=== PATIENT | male | born 1945 | race Caucasian/White ===

== ENCOUNTER 2023-04-21 13:32 | Inpatient (IN) | payer MEDICARE, BC ==
[2023-04-21 14:04] LABS: Glucose,Whole Blood 130 mg/dL (70-110)
[2023-04-21] MEDS ORDERED: SODIUM CHLORIDE 0.9% 1,000 ML IV STA (14:37)
--- NOTE | 2023-04-21 14:42 | ED ---
General Adult HPI - General Chief complaint: Altered Mental Status Stated complaint: Recheck/Shaking Time Seen by Provider: 04/21/23 14:12 Source: patient, family, RN notes reviewed Mode of arrival: wheelchair - History of Present Illness Initial comments: Patient is a pleasant 78-year-old male presenting to the emergency Department with several concerns. Patient has had increased general weakness. Patient is only able to take 1 or 2 steps on his own without assistance. Patient has developed tremors. Patient has had some confusion. Decreased oral intake. No history of similar symptoms previously. Symptoms have just progressively the past few days. - Related Data Allergies Allergy/AdvReac Type Severity Reaction Status Date / Time acetaminophen [From Vicodin] Allergy Rash/Hives Verified 04/21/23 14:10 cefazolin [From Kefzol] Allergy Rash/Hives Verified 04/21/23 14:10 codeine Allergy Rash/Hives Verified 04/21/23 14:10 hydrocodone [From Vicodin] Allergy Rash/Hives Verified 04/21/23 14:10 hydromorphone [From Dilaudid] Allergy Vomiting Verified 04/21/23 14:10 ibuprofen [From Motrin] Allergy Rash/Hives Verified 04/21/23 14:10 morphine Allergy Rash/Hives Verified 04/21/23 14:10 tramadol Allergy Rash/Hives Verified 04/21/23 14:10 alprazolam AdvReac Unknown Verified 04/21/23 14:10 tape Allergy Rash/Hives Uncoded 04/21/23 14:10 Review of Systems ROS Statement: Those systems with pertinent positive or pertinent negative responses have been documented in the HPI. ROS Other: All systems not noted in ROS Statement are negative. Constitutional: Denies: fever Eyes: Denies: eye pain ENT: Denies: ear pain Respiratory: Denies: cough, dyspnea Cardiovascular: Denies: chest pain Endocrine: Reports: as per HPI, fatigue Gastrointestinal: Denies: abdominal pain, vomiting Genitourinary: Denies: dysuria Musculoskeletal: Denies: back pain Skin: Denies: rash Neurological: Reports: as per HPI, weakness Past Medical History Past Medical History: Chest Pain / Angina, Hyperlipidemia, Hypertension History of Any Multi-Drug Resistant Organisms: None Reported Additional Past Surgical History / Comment(s): shoulder, hip. AAA? Past Psychological History: No Psychological Hx Reported Smoking Status: Never smoker Past Alcohol Use History: None Reported Past Drug Use History: None Reported General Exam Limitations: no limitations General appearance: alert, in no apparent distress, other (Patient is slow to follow commands) Head exam: Present: atraumatic Eye exam: Present: normal appearance, PERRL, EOMI ENT exam: Present: normal oropharynx Neck exam: Present: normal inspection. Absent: tenderness, meningismus Respiratory exam: Present: normal lung sounds bilaterally Cardiovascular Exam: Present: regular rate, normal rhythm GI/Abdominal exam: Present: soft. Absent: tenderness Extremities exam: Present: normal inspection, full ROM. Absent: tenderness Neurological exam: Present: alert, CN II-XII intact Expanded Neurological exam: Present: protecting the airway Patient oriented to: Present: person, place. Absent: time Cranial nerves: EOM's Intact: Normal Motor strength exam: RUE: 4, LUE: 4, RLE: 3, LLE: 3 Eye Response: (3) open to voice Motor Response: (6) obeys commands Verbal Response: (4) confused conversation Psychiatric exam: Present: normal affect, normal mood Skin exam: Present: normal color Course Vital Signs 04/21/23 04/21/23 04/21/23 13:57 15:00 16:00 Temperature 97.4 F L Pulse Rate 84 86 80 Respiratory 18 18 18 Rate Blood Pressure 104/64 118/74 110/68 O2 Sat by Pulse 97 99 99 Oximetry 04/21/23 17:00 Temperature Pulse Rate 81 Respiratory 18 Rate Blood Pressure 113/64 O2 Sat by Pulse 99 Oximetry EKG Findings - EKG Results: EKG: interpreted by ERMD (Left axis. Bundle-branch block. Right.), sinus rhythm, normal ST/T Medical Decision Making - Medical Decision Making Was pt. sent in by a medical professional or institution (, PA, GRAPHICS PRODUCTION SPECIALIST, urgent care, hospital, or correction...) When possible be specific @ -No Did you speak to anyone other than the patient for history (EMS, parent, family, police, friend...)? What history was obtained from this source @ -Family is present and helps provide history including history of onset Did you review nursing and triage notes (agree or disagree)? Why? @ -I reviewed and agree with nursing and triage notes Were old charts reviewed (outside hosp., previous admission, EMS record, old EKG, old radiological studies, urgent care reports/EKG's, correction records)? Report findings @ -No old charts were reviewed Differential Diagnosis (chest pain, altered mental status, abdominal pain women, abdominal pain men, vaginal bleeding, weakness, fever, dyspnea, syncope, headache, dizziness, GI bleed, back pain, seizure, CVA, palpatations, mental health, musculoskeletal)? @ -Differential Weakness: Hypoglycemia, shock, sepsis, hyponatremia, anemia, infection, IN, ETOH, adverse medicine reaction, overdose, stroke, this is not meant to be an all-inclusive l ist. EKG interpreted by me (3pts min.). @ -As above X-rays interpreted by me (1pt min.). @ -Chest x-ray shows no acute process CT interpreted by me (1pt min.). @ -Report reviewed U/S interpreted by me (1pt. min.). @ -None done What testing was considered but not performed or refused? (CT, X-rays, U/S, labs)? Why? @ -None What meds were considered but not given or refused? Why? @ -None Did you discuss the management of the patient with other professionals (professionals i.e. , PA, GRAPHICS PRODUCTION SPECIALIST, lab, RT, psych nurse, child welfare social worker, education faculty member, teacher, ecological technical officer, residential case manager)? Give summary @ -Case was discussed with Dr. Nova, who will admit covering hospital call. Was smoking cessation discussed for >3mins.? @ -No Was critical care preformed (if so, how long)? @ -No Were there social determinants of health that impacted care today? How? (Homelessness, low income, unemployed, alcoholism, drug addiction, transportation, low edu. Level, literacy, decrease access to med. care, fpc, rehab)? @ -No Was there de-escalation of care discussed even if they declined (Discuss DNR or withdrawal of care, Hospice)? DNR status @ -No What co-morbidities impacted this encounter? (DM, HTN, Smoking, COPD, CAD, Cancer, CVA, ARF, Chemo, Hep., AIDS, mental health diagnosis, sleep apnea, morbid obesity)? @ -None Was patient admitted / discharged? Hospital course, mention meds given and route, prescriptions, significant lab abnormalities, going to OR and other pertinent info. @ -Patient reevaluated. Patient and family updated. Exact etiology is not clear at this time. Patient will be admitted for neurology consult. Patient does have some dehydration and will be provided IV fluids for this however is not felt to be significant enough to account for patient's symptoms. Undiagnosed new problem with uncertain prognosis? @ -Uncertain etiology at this time. Patient will require neurology evaluation Drug Therapy requiring intensive monitoring for toxicity (Heparin, Nitro, Insulin, Cardizem)? @ -No Were any procedures done? @ -No Diagnosis/symptom? @ -Weakness, tremor Acute, or Chronic, or Acute on Chronic? @ -Acute Uncomplicated (without systemic symptoms) or Complicated (systemic symptoms)? @ -default Side effects of treatment? @ -No Exacerbation, Progression, or Severe Exacerbation? @ -No Poses a threat to life or bodily function? How? (Chest pain, USA, IN, pneumonia, PE, COPD, DKA, ARF, appy, cholecystitis, CVA, Diverticulitis, Homicidal, Suicidal, threat to staff... and all critical care pts) @ -No - Lab Data Result diagrams: 04/21/23 15:29 04/21/23 15:29 Lab Results 04/21/23 04/21/23 04/21/23 Range/Units 14:02 15:29 15:29 WBC 10.5 (3.8-10.6) k/uL RBC 2.65 L (4.30-5.90) m/uL Hgb 8.7 L (13.0-17.5) gm/dL Hct 25.5 L (39.0-53.0) % MCV 96.3 (80.0-100.0) fL MCH 32.9 (25.0-35.0) pg MCHC 34.2 (31.0-37.0) g/dL RDW 19.3 H (11.5-15.5) % Plt Count 307 (150-450) k/uL MPV 8.6 Neutrophils % 72 % Lymphocytes % 15 % Monocytes % 8 % Eosinophils % 0 % Basophils % 1 % Neutrophils # 7.6 (1.3-7.7) k/uL Lymphocytes # 1.6 (1.0-4.8) k/uL Monocytes # 0.8 (0-1.0) k/uL Eosinophils # 0.0 (0-0.7) k/uL Basophils # 0.1 (0-0.2) k/uL Manual Slide Review Performed Anisocytosis Slight Macrocytosis Slight PT 10.2 (9.0-12.0) sec INR 1.0 (<1.2) APTT 20.9 L (22.0-30.0) sec Sodium (137-145) mmol/L Potassium (3.5-5.1) mmol/L Chloride (98-107) mmol/L Carbon Dioxide (22-30) mmol/L Anion Gap mmol/L BUN (9-20) mg/dL Creatinine (0.66-1.25) mg/dL Est GFR (CKD-EPI)AfAm (>60 ml/min/1.73 sqM) Est GFR (CKD-EPI)NonAf (>60 ml/min/1.73 sqM) Glucose (74-99) mg/dL POC Glucose (mg/dL) 130 H (70-110) mg/dL POC Glu [employer] Production Team Member ID Hali Larios Plasma Lactic Acid Reza (0.7-2.0) mmol/L Calcium (8.4-10.2) mg/dL Phosphorus (2.5-4.5) mg/dL Magnesium (1.6-2.3) mg/dL Total Bilirubin (0.2-1.3) mg/dL AST (17-59) U/L ALT (4-49) U/L Alkaline Phosphatase (38-126) U/L Ammonia (<30) umol/L Troponin I (0.000-0.034) ng/mL Total Protein (6.3-8.2) g/dL Albumin (3.5-5.0) g/dL TSH (0.465-4.680) mIU/L Free T4 (0.78-2.19) ng/dL Free T3 pg/mL (2.8-5.3) pg/ml 04/21/23 04/21/23 04/21/23 Range/Units 15:29 15:29 15:29 WBC (3.8-10.6) k/uL RBC (4.30-5.90) m/uL Hgb (13.0-17.5) gm/dL Hct (39.0-53.0) % MCV (80.0-100.0) fL MCH (25.0-35.0) pg MCHC (31.0-37.0) g/dL RDW (11.5-15.5) % Plt Count (150-450) k/uL MPV Neutrophils % % Lymphocytes % % Monocytes % % Eosinophils % % Basophils % % Neutrophils # (1.3-7.7) k/uL Lymphocytes # (1.0-4.8) k/uL Monocytes # (0-1.0) k/uL Eosinophils # (0-0.7) k/uL Basophils # (0-0.2) k/uL Manual Slide Review Anisocytosis Macrocytosis PT (9.0-12.0) sec INR (<1.2) APTT (22.0-30.0) sec Sodium 134 L (137-145) mmol/L Potassium 3.3 L (3.5-5.1) mmol/L Chloride 95 L (98-107) mmol/L Carbon Dioxide 28 (22-30) mmol/L Anion Gap 11 mmol/L BUN 44 H (9-20) mg/dL Creatinine 2.13 H (0.66-1.25) mg/dL Est GFR (CKD-EPI)AfAm 33 (>60 ml/min/1.73 sqM) Est GFR (CKD-EPI)NonAf 29 (>60 ml/min/1.73 sqM) Glucose 102 H (74-99) mg/dL POC Glucose (mg/dL) (70-110) mg/dL POC Glu [employer] Production Team Member ID Plasma Lactic Acid Reza 1.0 (0.7-2.0) mmol/L Calcium 8.9 (8.4-10.2) mg/dL Phosphorus 3.2 (2.5-4.5) mg/dL Magnesium 2.1 (1.6-2.3) mg/dL Total Bilirubin 1.3 (0.2-1.3) mg/dL AST 51 (17-59) U/L ALT 32 (4-49) U/L Alkaline Phosphatase 50 (38-126) U/L Ammonia <9 (<30) umol/L Troponin I <0.012 (0.000-0.034) ng/mL Total Protein 7.5 (6.3-8.2) g/dL Albumin 3.9 (3.5-5.0) g/dL TSH 0.949 (0.465-4.680) mIU/L Free T4 1.15 (0.78-2.19) ng/dL Free T3 pg/mL 3.6 (2.8-5.3) pg/ml Disposition Clinical Impression: Weakness Disposition: ADMITTED IP TO THIS HOSP Is patient prescribed a controlled substance at d/c from ED?: No Referrals: Nonstaff,Physician [Primary Care Provider] - 1-2 days Time of Disposition: 18:42
--- NOTE | 2023-04-21 15:46 | XR ---
EXAMINATION TYPE: XR chest 2V DATE OF EXAM: 04/21/2023 3:22 PM COMPARISON: None TECHNIQUE: XR chest 2V Frontal and lateral views of the chest. CLINICAL INDICATION:Male, 78 years old with history of Weakness; FINDINGS: Lungs/Pleura: There is no evidence of pleural effusion, focal consolidation, or pneumothorax. Pulmonary vascularity: Unremarkable. Heart/mediastinum: Cardiomediastinal silhouette is unremarkable. Musculoskeletal: No acute osseous pathology. IMPRESSION: No acute cardiopulmonary disease/process.
--- NOTE | 2023-04-21 15:50 | CT ---
EXAMINATION TYPE: CT brain wo con CT DLP: 1199.4 mGycm, Automated exposure control for dose reduction was used. DATE OF EXAM: 04/21/2023 3:22 PM COMPARISON: None. CLINICAL INDICATION:Male, 78 years old with history of weakness, new onset tremors 4 days ago. lethar gic. unable to stand on his own when he previously could walk. TECHNIQUE: Brain: Axial CT images of the brain were obtained with coronal and sagittal reformats created and rev iewed. Contrast used: None. Oral contrast used: None. FINDINGS: Brain: Extra-axial spaces: No abnormal extra-axial fluid collections. Ventricular system: Dilatation in proportion to cerebral atrophy. Cerebral parenchyma: Cerebral atrophy. No acute intraparenchymal hemorrhage or mass effect. The olson -white junction is well differentiated. Scattered hypoattenuating areas are seen within the white mat ter. Cerebellum: Unremarkable. Mass effect: No evidence of midline shift. Intracranial vasculature: Atherosclerotic calcifications of the intracranial vessels. Soft tissues: Normal. Calvarium/osseous structures: No depressed skull fracture. Paranasal sinuses and mastoid air cells: Mild scattered paranasal sinus disease. Visualized orbits: Orbital contents are intact. IMPRESSION: 1. No acute intracranial process. 2. Nonspecific white matter changes, likely secondary to chronic small vessel ischemic disease.
[2023-04-21 16:42] LABS: Prothrombin Time 10.2 sec (9.0-12.0)
[2023-04-21 16:45] LABS: Anisocytosis Slight; Basophils # (A) 0.1 k/uL (0-0.2); Basophils % (A) 1 %; Eosinophils % (A) 0 %; HCT 25.5 % (39.0-53.0); HGB 8.7 gm/dL (13.0-17.5); Lymphocytes # (A) 1.6 k/uL (1.0-4.8); Lymphocytes % (A) 15 %; MCH 32.9 pg (25.0-35.0); MCHC 34.2 g/dL (31.0-37.0); MCV 96.3 fL (80.0-100.0); Macrocytosis Slight; Mean Platelet Volume 8.6; Monocytes # (A) 0.8 k/uL (0-1.0); Monocytes % (A) 8 %; Neutrophils # (A) 7.6 k/uL (1.3-7.7); Neutrophils % (A) 72 %; Platelet Count 307 k/uL (150-450); RBC 2.65 m/uL (4.30-5.90); RDW 19.3 % (11.5-15.5); WBC 10.5 k/uL (3.8-10.6)
[2023-04-21 16:54] LABS: ALT 32 U/L (4-49); AST 51 U/L (17-59); African American GFR (CKD) 33 (>60 ml/min/1.73 sqM); Albumin 3.9 g/dL (3.5-5.0); Alkaline Phosphatase 50 U/L (38-126); Anion Gap 11 mmol/L; Blood Urea Nitrogen 44 mg/dL (9-20); Calcium 8.9 mg/dL (8.4-10.2); Carbon Dioxide 28 mmol/L (22-30); Chloride 95 mmol/L (98-107); Glucose 102 mg/dL (74-99); Magnesium 2.1 mg/dL (1.6-2.3); Non-African American GFR(CKD) 29 (>60 ml/min/1.73 sqM); Phosphorus 3.2 mg/dL (2.5-4.5); Potassium 3.3 mmol/L (3.5-5.1); Sodium 134 mmol/L (137-145); Total Bilirubin 1.3 mg/dL (0.2-1.3); Total Protein 7.5 g/dL (6.3-8.2)
[2023-04-21 17:02] LABS: Partial Thromboplastin Time 20.9 sec (22.0-30.0)
[2023-04-21 17:07] LABS: T4, Free (Free Thyroxine) 1.15 ng/dL (0.78-2.19)
[2023-04-21] MEDS ORDERED: NALOXONE 0.4 MG/ML 1 ML VIAL IV PRN (18:43)
[2023-04-21] MEDS: SODIUM CHLORIDE 0.9% 1,000 ML IV SCH (19:15)
[2023-04-21 21:02] LABS: Appearance,Urine Clear (Clear); Bilirubin,Urine Negative (Negative); Blood,Urine Negative (Negative); Color,Urine Yellow; Glucose,Urine (UA) Negative (Negative); Ketones,Urine Trace (Negative); Leukocyte Esterase,Urine Negative (Negative); Nitrite,Urine Negative (Negative); PH, Urine 5.5 (5.0-8.0); Protein,Urine Trace (Negative); Specific Gravity,Urine 1.019 (1.001-1.035); Urobilinogen,Urine <2.0 mg/dL (<2.0)
[2023-04-22] MEDS ORDERED: POTASSIUM CHLORIDE ER 20 MEQ TAB.ER PO STA (00:04)
[2023-04-22] MEDS ORDERED: FAMOTIDINE 20 MG TAB PO SCH (00:15)
[2023-04-22] MEDS ORDERED: hydrOXYzine HCL 25 MG TAB PO PRN (06:00)
[2023-04-22] MEDS: ATORVASTATIN 20 MG TAB PO SCH (08:21)
[2023-04-22] MEDS: FAMOTIDINE 20 MG TAB PO SCH (08:21)
[2023-04-22] MEDS: HEPARIN SODIUM,PORCINE 5,000 UNIT/ML 1 ML VIAL SQ SCH ×2 (08:21→17:23)
[2023-04-22] MEDS: CLOPIDOGREL 75 MG TAB PO SCH (08:21)
[2023-04-22] MEDS: SODIUM CHLORIDE 0.9% 1,000 ML IV SCH ×2 (08:22→20:52)
[2023-04-22 08:40] LABS: HCT 23.9 % (39.6-50.0); HGB 7.6 d/dL (13.0-17.0); MCH 31.8 pg (27.0-32.0); MCHC 31.8 d/dL (32.0-37.0); Mean Platelet Volume 11.1 FL (9.5-12.2); NRBC Per 100 WBC 0 X 10*3/uL (0.00-0.01); Platelet Count 336 X 10*3/uL (140-440); RBC 2.39 X 10*6/uL (4.40-5.60); RDW 18.7 % (11.5-14.5); WBC 7.68 X 10*3/uL (4.50-10.00)
[2023-04-22 09:10] LABS: % Iron Saturation 25.34 (15.00-50.00); ALT 28 U/L (10-49); AST 37 U/L (14-35); Albumin 3.7 d/dL (3.8-4.9); Albumin/Globulin Ratio 1.37 Ratio (1.60-3.17); Alkaline Phosphatase 41 U/L (41-126); BUN/Creat Ratio 17.53 Ratio (12.00-20.00); Blood Urea Nitrogen 33.3 mg/dL (9.0-27.0); Calcium 8.7 mg/dL (8.7-10.3); Carbon Dioxide 24.3 mmol/L (21.6-31.8); Chloride 101 mmol/L (96-109); Globulin 2.7 d/dL (1.6-3.3); Glucose 92 mg/dL (70-110); Iron 56 UG/DL (65-175); Potassium 3.6 mmol/L (3.5-5.5); Sodium 137 mmol/L (135-145); Total Bilirubin 0.8 mg/dL (0.3-1.2); Total Iron Binding Capacity 221 UG/DL (228-460); Total Protein 6.4 d/dL (6.2-8.2)
[2023-04-22] MEDS ORDERED: NITROGLYCERIN SL TABS 0.4 MG TAB SUBLINGUAL PRN (09:20)
[2023-04-22] MEDS ORDERED: MECLIZINE 25 MG TAB PO PRN (09:20)
[2023-04-22] MEDS ORDERED: ONDANSETRON 4 MG/2 ML VIAL IVP PRN (09:23)
[2023-04-22] MEDS ORDERED: ACETAMINOPHEN TAB 325 MG TAB PO PRN (09:23)
[2023-04-22 09:35] LABS: Basophils # (A) 0.11 X 10*3/uL (0.00-0.10); Basophils % (A) 1.4 %; Eosinophils # (A) 0.06 X 10*3/uL (0.04-0.35); Eosinophils % (A) 0.8 %; Lymphocytes # (A) 1.89 X 10*3/uL (0.90-5.00); Lymphocytes % (A) 24.6 %; Monocytes # (A) 1.23 X 10*3/uL (0.20-1.00); Neutrophils # (A) 4.33 X 10*3/uL (1.80-7.70); Neutrophils % (A) 56.4 %; RBC Morphology Normal (Normal)
[2023-04-22] MEDS: PANTOPRAZOLE 40 MG TABLET PO SCH (11:43)
[2023-04-22] MEDS: CYCLOBENZAPRINE 10 MG TAB PO SCH (11:43)
--- NOTE | 2023-04-22 13:45 | P.HPIM ---
History of Present Illness H&P Date: 04/22/23 Chief Complaint: Generalized weakness tremor * 78-year-old gentleman with past medical history significant for dyslipidemia, hypertension chronic kidney disease presented to the emergency department with complaints of weakness. * Patient states he has been progressively getting weak and for the last 3 weeks he has generalized tremors. Patient had impaired ambulation secondary to tremors as well * Patient states he can take about one to 2 steps on his own without assistance and the tremors has limited his activity of daily living. He is from and his medical record is limited * At the time of presentation in ER patient had a CT brain done which was negative for acute intracranial process. Patient had a chest x-ray obtained which was negative as well * Blood work obtained including CBC which showed anemia hemoglobin of 8.7 hematocrit 25 serum chemistry shows sodium of 134 potassium 3.3 chloride of 95 BUN of 44 creatinine 2.13 blood glucose 102 TSH within normal limits * Patient admitted with consultations from neurology for further evaluation REVIEW OF SYSTEMS: Generalized weakness, tremors CONSTITUTIONAL: No fever, no malaise, no fatigue. HEENT: No recent visual problems or hearing problems. Denied any sore throat. CARDIOVASCULAR: No chest pain, orthopnea, PND, no palpitations, no syncope. PULMONARY: No shortness of breath, no cough, no hemoptysis. GASTROINTESTINAL: No diarrhea, no nausea, no vomiting, no abdominal pain. NEUROLOGICAL: No headaches, no weakness, no numbness. HEMATOLOGICAL: Denies any bleeding or petechiae. GENITOURINARY: Denies any burning micturition, frequency, or urgency. MUSCULOSKELETAL/RHEUMATOLOGICAL: Denies any joint pain, swelling, or any muscle pain. ENDOCRINE: Denies any polyuria or polydipsia. The rest of the 14-point review of systems is negative. PHYSICAL EXAMINATION: GENERAL: The patient is alert and oriented x3, not in any acute distress. Well developed, well nourished. Chronic ill appearance HEENT: Pupils are round and equally reacting to light. EOMI. No scleral icterus. No conjunctival pallor. Normocephalic, atraumatic. No pharyngeal erythema. No thyromegaly. CARDIOVASCULAR: S1 and S2 present. No murmurs, rubs, or gallops. PULMONARY: Chest is clear to auscultation, no wheezing or crackles. ABDOMEN: Soft, nontender, nondistended, normoactive bowel sounds. No palpable organomegaly. MUSCULOSKELETAL: No joint swelling or deformity. EXTREMITIES: No cyanosis, clubbing, or pedal edema. NEUROLOGICAL: She does have generalized tremors, no focal deficit noted SKIN: No rashes. Past Medical History Past Medical History: Chest Pain / Angina, Hyperlipidemia, Hypertension Additional Past Medical History / Comment(s): stent in 2002, History of Any Multi-Drug Resistant Organisms: None Reported Additional Past Surgical History / Comment(s): shoulder, hip. AAA? Past Psychological History: Anxiety, Depression Smoking Status: Former smoker Past Alcohol Use History: None Reported Past Drug Use History: None Reported Medications and Allergies Home Medications Medication Instructions Recorded Confirmed Type ALPRAZolam [Xanax] 0.5 mg PO TID PRN 04/21/23 04/21/23 History Ascorbic Acid [Vitamin C chew] 500 mg PO BID 04/21/23 04/21/23 History Cholecalciferol [Vitamin D3 (25 100 mcg PO DAILY 04/21/23 04/21/23 History Mcg = 1000 Iu)] Clopidogrel [Plavix] 75 mg PO DAILY 04/21/23 04/21/23 History Cyclobenzaprine [Flexeril] 10 mg PO DAILY 04/21/23 04/21/23 History Famotidine 20 mg PO BID 04/21/23 04/21/23 History Meclizine [Antivert] 25 mg PO TID PRN 04/21/23 04/21/23 History Nitroglycerin Sl Tabs [Nitrostat] 0.4 mg SL Q5M PRN 04/21/23 04/21/23 History Omeprazole [PriLOSEC] 20 mg PO AC-BID 04/21/23 04/21/23 History Rosuvastatin [Crestor] 10 mg PO DAILY 04/21/23 04/21/23 History Triamcinolone 0.1% Cream [Kenalog 1 applic TOPICAL BID 04/21/23 04/21/23 History 0.1% Cream] Triamterene/Hydrochlorothiazid 1 cap PO W/BRKFST 04/21/23 04/21/23 History [Triamterene-Hctz 37.5-25 mg Cp] hydrOXYzine HCL [Atarax] 25 mg PO Q6H PRN 04/21/23 04/21/23 History hydroCHLOROthiazide [Hydrodiuril] 25 mg PO W/BRKFST 04/21/23 04/21/23 History Allergies Allergy/AdvReac Type Severity Reaction Status Date / Time adhesive tape Allergy Rash/Hives Verified 04/21/23 19:54 cefazolin [From Kefzol] Allergy Rash/Hives Verified 04/21/23 19:54 codeine Allergy Rash/Hives Verified 04/21/23 19:54 & Shortness of Breath hydrocodone [From Vicodin] Allergy Rash/Hives Verified 04/21/23 19:54 & Shortness of breath ibuprofen [From Motrin] Allergy Rash/Hives Verified 04/21/23 19:54 & Shortness of breath morphine Allergy Dyspnea Verified 04/21/23 19:54 tramadol Allergy Dyspnea & Verified 04/21/23 19:54 Rash/Hives hydromorphone [From Dilaudid] AdvReac Vomiting & Verified 04/21/23 19:54 Itching sertraline AdvReac epididymiti Verified 04/21/23 19:54 s Physical Exam Vitals: Vital Signs Temp Pulse Pulse Resp BP BP Pulse Ox 04/22/23 07:20 97.8 F 91 17 123/70 94 L 04/22/23 02:21 98.6 F 84 18 121/64 95 04/21/23 20:53 99.1 F 84 20 126/62 91 L 04/21/23 20:15 92 18 94 L 04/21/23 20:00 87 18 114/63 94 L 04/21/23 19:00 87 22 112/76 94 L 04/21/23 17:00 81 18 113/64 99 04/21/23 16:00 80 18 110/68 99 04/21/23 15:00 86 18 118/74 99 04/21/23 14:19 16 04/21/23 13:57 97.4 F L 84 18 104/64 97 Intake and Output 04/21/23 04/22/23 04/22/23 22:59 06:59 14:59 Other: Voiding Method Urinal Incontinent External Catheter # Voids 3 Weight 81.647 kg Results CBC & Chem 7: 04/22/23 05:16 04/22/23 05:16 Labs: Abnormal Lab Results - Last 24 Hours (Table) 04/21/23 04/21/23 04/21/23 Range/Units 14:02 15:29 15:29 RBC 2.65 L (4.30-5.90) m/uL Hgb 8.7 L (13.0-17.5) gm/dL Hct 25.5 L (39.0-53.0) % MCV (80.0-97.0) FL MCHC (32.0-37.0) d/dL RDW 19.3 H (11.5-15.5) % Monocytes # (0.20-1.00) X 10*3/uL Basophils # (0.00-0.10) X 10*3/uL APTT 20.9 L (22.0-30.0) sec Sodium (137-145) mmol/L Potassium (3.5-5.1) mmol/L Chloride (98-107) mmol/L BUN (9-20) mg/dL Creatinine (0.66-1.25) mg/dL Est GFR (CKD-EPI) (>=60) Glucose (74-99) mg/dL POC Glucose (mg/dL) 130 H (70-110) mg/dL Iron (65-175) UG/DL TIBC (228-460) UG/DL Transferrin (204.0-354.0) mg/dL AST (14-35) U/L Albumin (3.8-4.9) d/dL Albumin/Globulin Ratio (1.60-3.17) Ratio Urine Protein (Negative) Urine Ketones (Negative) 04/21/23 04/21/23 04/22/23 Range/Units 15:29 20:40 05:16 RBC 2.39 L (4.30-5.90) m/uL Hgb 7.6 L (13.0-17.5) gm/dL Hct 23.9 L (39.0-53.0) % MCV 100.0 H (80.0-97.0) FL MCHC 31.8 L (32.0-37.0) d/dL RDW 18.7 H (11.5-15.5) % Monocytes # 1.23 H (0.20-1.00) X 10*3/uL Basophils # 0.11 H (0.00-0.10) X 10*3/uL APTT (22.0-30.0) sec Sodium 134 L (137-145) mmol/L Potassium 3.3 L (3.5-5.1) mmol/L Chloride 95 L (98-107) mmol/L BUN 44 H (9-20) mg/dL Creatinine 2.13 H (0.66-1.25) mg/dL Est GFR (CKD-EPI) (>=60) Glucose 102 H (74-99) mg/dL POC Glucose (mg/dL) (70-110) mg/dL Iron (65-175) UG/DL TIBC (228-460) UG/DL Transferrin (204.0-354.0) mg/dL AST (14-35) U/L Albumin (3.8-4.9) d/dL Albumin/Globulin Ratio (1.60-3.17) Ratio Urine Protein Trace H (Negative) Urine Ketones Trace H (Negative) 04/22/23 Range/Units 05:16 RBC (4.30-5.90) m/uL Hgb (13.0-17.5) gm/dL Hct (39.0-53.0) % MCV (80.0-97.0) FL MCHC (32.0-37.0) d/dL RDW (11.5-15.5) % Monocytes # (0.20-1.00) X 10*3/uL Basophils # (0.00-0.10) X 10*3/uL APTT (22.0-30.0) sec Sodium (137-145) mmol/L Potassium (3.5-5.1) mmol/L Chloride (98-107) mmol/L BUN 33.3 H (9-20) mg/dL Creatinine 1.9 H (0.66-1.25) mg/dL Est GFR (CKD-EPI) 36 L (>=60) Glucose (74-99) mg/dL POC Glucose (mg/dL) (70-110) mg/dL Iron 56 L (65-175) UG/DL TIBC 221 L (228-460) UG/DL Transferrin 158.0 L (204.0-354.0) mg/dL AST 37 H (14-35) U/L Albumin 3.7 L (3.8-4.9) d/dL Albumin/Globulin Ratio 1.37 L (1.60-3.17) Ratio Urine Protein (Negative) Urine Ketones (Negative) Thrombosis Risk Factor Assmnt - Choose All That Apply Any of the Below Risk Factors Present?: Yes Each Factor Represents 1 point: Obesity (BMI >25) Each Risk Factor Represents 2 Points: Patient confined to bed Each Risk Factor Represents 3 Points: Age 75 years or older Thrombosis Risk Factor Assessment Total Risk Factor Score: 6 Thrombosis Risk Factor Assessment Level: High Risk Assessment and Plan Assessment: Assessment and plan * Generalized tremors rule out Parkinson's disease * Chronic kidney disease * Chronic anemia * History of hypertension * History of dyslipidemia * Coronary artery disease * In regards to generalized tremors neurology consulted, CT head negative for acute intracranial process, TSH within normal limits * In regards to chronic kidney disease continue to monitor renal profile continue IV hydration nephrotoxic medications including hydrochlorothiazide on hold * In regards to history of coronary artery disease continue patient on Plavix continue Lipitor * CODE STATUS is full code * Subcu heparin for DVT prophylaxis
[2023-04-23] MEDS: HEPARIN SODIUM,PORCINE 5,000 UNIT/ML 1 ML VIAL SQ SCH ×4 (00:01→23:56)
[2023-04-23] MEDS: CYCLOBENZAPRINE 10 MG TAB PO SCH (08:56)
[2023-04-23] MEDS: CLOPIDOGREL 75 MG TAB PO SCH (08:56)
[2023-04-23] MEDS: PANTOPRAZOLE 40 MG TABLET PO SCH (08:57)
[2023-04-23] MEDS: FAMOTIDINE 20 MG TAB PO SCH (08:57)
[2023-04-23] MEDS: ATORVASTATIN 20 MG TAB PO SCH (08:57)
[2023-04-23] MEDS: SODIUM CHLORIDE 0.9% 1,000 ML IV SCH (08:57)
[2023-04-23 09:09] LABS: BUN/Creat Ratio 15.12 Ratio (12.00-20.00); Blood Urea Nitrogen 25.7 mg/dL (9.0-27.0); Calcium 8.7 mg/dL (8.7-10.3); Chloride 104 mmol/L (96-109); Glucose 97 mg/dL (70-110); Potassium 3.7 mmol/L (3.5-5.5); Sodium 138 mmol/L (135-145)
--- NOTE | 2023-04-23 09:23 | P.CNNES ---
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 Patient not able to provide history because of slow mentation. Patient's son was present, who provided with a detailed history. Patient lives in [place], came to visit his family in and of January 2023. He was supposed to stay for only one or 2 weeks and patient brought his medications for that amount of time. However he ended up staying for 8 more weeks. Patient used to take Xanax 0.5 mg twice a day for "years". His primary physician could not fill the prescription in different state. Patient's son wean him off Xanax and he took about 1 tablet a day for a week before he ran out of his medication. He has been without Xanax for last 8 weeks, doing well. Patient symptoms started last Saturday on 04/17/2023 when he was noticed to be somewhat shaky. The symptoms got worse on and Saturday got much worse. Patient's son took him to the ER in [place], who felt patient has anxiety attack without Xanax. He was given prescription of Xanax. Saturday he was slightly better than Saturday but Saturday he could not walk, was tremoring, couldn't even feed himself. Yesterday on Saturday, he was so shaky that he could not touch his face or feed himself. Therefore patient's son brought him to [facility]. Today he is "smidge better". Patient has taken Xanax on Saturday night, and took 2 tablets on Saturday. And the last dose he took was on Saturday morning, before he came to the hospital. Patient denies any fever or any headache. He denies any excessive mosquito bites, although he does sit on the porch a lot. Denies any tick bite, although he does deer figueroa. At baseline his memory is perfectly fine. He does not use any assistive device and he lives by himself. He takes Plavix because of history of cardiac stent. Vital signs arrival blood pressure 104/64, pulse rate 84 temperature 97.4. Blood test shows normal WBC, hemoglobin 8.7, platelets 307, PT/PTT normal, sodium 134 potassium 3.3, BUN 44, creatinine 2.13, which has improved to 33.3 and 1.9 respectively. Troponin negative, hepatic panel is normal. B12 564, TSH normal, free T4 normal. UA negative. EKG shows sinus rhythm, chest x-ray normal. CT of the head showed no acute intracranial process. There is generalized cerebral atrophy. I personally reviewed CT head, agree with the findings. Home medications includes Xanax 0.5 mA 3 times a day when necessary, vitamin D, Plavix 75 mg, Flexeril, Pepcid, HCTZ, hydroxyzine, meclizine, omeprazole, Crestor 10 mg. Triamterene/HCTZ. No previous history of tobacco use, alcohol. No marijuana. Patient has h ypertension but denies diabetes. Review of Systems Constitutional: Reports weight loss, Denies chills, Denies fever Eyes: denies blurred vision, denies diplopia, denies pain Ears: bilateral: decreased hearing (Age related), deny: ear discharge Ears, nose, mouth and throat: Denies headache, Denies nasal congestion, Denies sore throat Cardiovascular: Denies chest pain, Denies shortness of breath Respiratory: Denies cough, Denies excessive sputum Gastrointestinal: Denies abdominal pain, Denies diarrhea, Denies nausea, Denies vomiting Genitourinary: Denies incontinence, Denies urinary frequency, Denies urinary hesitancy Musculoskeletal: Denies low back pain, Denies myalgias, Denies neck pain Integumentary: Denies pruritus, Denies rash Neurological: Reports as per HPI Psychiatric: Reports anxiety, Denies depression Endocrine: Reports fatigue, Reports weight change Hematologic/Lymphatic: Denies easy bleeding, Denies easy bruising Past Medical History Past Medical History: Chest Pain / Angina, Hyperlipidemia, Hypertension Additional Past Medical History / Comment(s): stent in 2002, History of Any Multi-Drug Resistant Organisms: None Reported Additional Past Surgical History / Comment(s): shoulder, hip. AAA? Past Psychological History: Anxiety, Depression Smoking Status: Former smoker Past Alcohol Use History: None Reported Past Drug Use History: None Reported Medications and Allergies Home Medications Medication Instructions Recorded Confirmed Type ALPRAZolam [Xanax] 0.5 mg PO TID PRN 04/21/23 04/21/23 History Ascorbic Acid [Vitamin C chew] 500 mg PO BID 04/21/23 04/21/23 History Cholecalciferol [Vitamin D3 (25 100 mcg PO DAILY 04/21/23 04/21/23 History Mcg = 1000 Iu)] Clopidogrel [Plavix] 75 mg PO DAILY 04/21/23 04/21/23 History Cyclobenzaprine [Flexeril] 10 mg PO DAILY 04/21/23 04/21/23 History Famotidine 20 mg PO BID 04/21/23 04/21/23 History Meclizine [Antivert] 25 mg PO TID PRN 04/21/23 04/21/23 History Nitroglycerin Sl Tabs [Nitrostat] 0.4 mg SL Q5M PRN 04/21/23 04/21/23 History Omeprazole [PriLOSEC] 20 mg PO AC-BID 04/21/23 04/21/23 History Rosuvastatin [Crestor] 10 mg PO DAILY 04/21/23 04/21/23 History Triamcinolone 0.1% Cream [Kenalog 1 applic TOPICAL BID 04/21/23 04/21/23 History 0.1% Cream] Triamterene/Hydrochlorothiazid 1 cap PO W/BRKFST 04/21/23 04/21/23 History [Triamterene-Hctz 37.5-25 mg Cp] hydrOXYzine HCL [Atarax] 25 mg PO Q6H PRN 04/21/23 04/21/23 History hydroCHLOROthiazide [Hydrodiuril] 25 mg PO W/BRKFST 04/21/23 04/21/23 History Allergies Allergy/AdvReac Type Severity Reaction Status Date / Time adhesive tape Allergy Rash/Hives Verified 04/21/23 19:54 cefazolin [From Kefzol] Allergy Rash/Hives Verified 04/21/23 19:54 codeine Allergy Rash/Hives Verified 04/21/23 19:54 & Shortness of Breath hydrocodone [From Vicodin] Allergy Rash/Hives Verified 04/21/23 19:54 & Shortness of breath ibuprofen [From Motrin] Allergy Rash/Hives Verified 04/21/23 19:54 & Shortness of breath morphine Allergy Dyspnea Verified 04/21/23 19:54 tramadol Allergy Dyspnea & Verified 04/21/23 19:54 Rash/Hives hydromorphone [From Dilaudid] AdvReac Vomiting & Verified 04/21/23 19:54 Itching sertraline AdvReac epididymiti Verified 04/21/23 19:54 s Physical Examination - Vital Signs Vital Signs: Vital Signs Temp Pulse Pulse Resp BP BP Pulse Ox 04/22/23 07:20 97.8 F 91 17 123/70 94 L 04/22/23 02:21 98.6 F 84 18 121/64 95 04/21/23 20:53 99.1 F 84 20 126/62 91 L 04/21/23 20:15 92 18 94 L 04/21/23 20:00 87 18 114/63 94 L 04/21/23 19:00 87 22 112/76 94 L 04/21/23 17:00 81 18 113/64 99 04/21/23 16:00 80 18 110/68 99 04/21/23 15:00 86 18 118/74 99 04/21/23 14:19 16 04/21/23 13:57 97.4 F L 84 18 104/64 97 Intake and Output 04/21/23 04/22/23 04/22/23 22:59 06:59 14:59 Other: Voiding Method Urinal Incontinent External Catheter # Voids 3 Weight 81.647 kg Patient is an elderly male, in no acute distress. Patient is alert awake, but appears obviously encephalopathic, extremely slow mentation, increased latency time to answer any question. Patient knows it is April 2023 and that he is in [place]. He states that he lives in [facility]. He has been living with his son for last 8 weeks, but could not tell what city he is living at this time. He knows it is a hospital but does not know the name. His does not know name of the county he lives in. He would frequently start with "that will be....", and then he stops. He knows name of the current president. Speech and language functions are normal. Patient can name and repeat very well. No aphasia or dysarthria. Attention, concentration and fund of knowledge is adequate. On cranial nerve examination, pupils are equal, round and reacting to light, visual sibley are full on confrontation, with no neglect on double simultaneous stimulation. Extraocular muscles are intact with no nystagmus. Face is symmetric, tongue protrudes to the midline. Palatal elevation and sensation normal, hearing is slightly decreased, and shoulder shrug normal, facial sensation normal. On muscle strength testing, there is no pronator drift and the strength is normal in arms and legs distally and proximally, except hip flexion, which is 4- 3+ bilaterally. Deep tendon reflexes are symmetric biceps 2+, brachioradialis 2+, 1 at the knees, 1 ankles and plantars downgoing bilaterally. No clonus. Sensory to touch is equal with no neglect on double simultaneous stimulation. Cerebellar function showed no ataxia for [id number] testing. Patient has mild to moderate tremors for [id number] testing. Moderate tremors of outstretched hands. Mild tremors noted at rest as well. Tone and bulk of muscles normal. Gait deferred.. On general examination, there is no carotid bruit or murmur, S1-S2 audible. Chest is clear on consultation. Abdomen is soft nontender. No organomegaly, bowel sounds present. Peripheral pulses are present. No edema. Results - Laboratory Findings CBC and BMP: 04/22/23 05:16 04/23/23 05:41 Abnormal Lab Findings: Abnormal Labs 04/21/23 04/21/23 04/21/23 14:02 15:29 15:29 RBC 2.65 L Hgb 8.7 L Hct 25.5 L MCV MCHC RDW 19.3 H Monocytes # Basophils # APTT 20.9 L Sodium Potassium Chloride BUN Creatinine Est GFR (CKD-EPI) Glucose POC Glucose (mg/dL) 130 H Iron TIBC Transferrin AST Albumin Albumin/Globulin Ratio Urine Protein Urine Ketones 04/21/23 04/21/23 04/22/23 15:29 20:40 05:16 RBC 2.39 L Hgb 7.6 L Hct 23.9 L MCV 100.0 H MCHC 31.8 L RDW 18.7 H Monocytes # 1.23 H Basophils # 0.11 H APTT Sodium 134 L Potassium 3.3 L Chloride 95 L BUN 44 H Creatinine 2.13 H Est GFR (CKD-EPI) Glucose 102 H POC Glucose (mg/dL) Iron TIBC Transferrin AST Albumin Albumin/Globulin Ratio Urine Protein Trace H Urine Ketones Trace H 04/22/23 05:16 RBC Hgb Hct MCV MCHC RDW Monocytes # Basophils # APTT Sodium Potassium Chloride BUN 33.3 H Creatinine 1.9 H Est GFR (CKD-EPI) 36 L Glucose POC Glucose (mg/dL) Iron 56 L TIBC 221 L Transferrin 158.0 L AST 37 H Albumin 3.7 L Albumin/Globulin Ratio 1.37 L Urine Protein Urine Ketones Assessment and Plan Assessment: * Acute onset of altered mental status, tremors, slow mentation, difficulty with walking, and eating, unclear cause. No fever, headache or signs of infection. Rule out delirium/metabolic encephalopathy. Rule out West Nile virus. Patient used to be on Xanax, but has been off Xanax for last 8 weeks, therefore doubt would be withdrawal from Xanax at this point. * CT head showed slightly more prominence of the ventricles as compared to the amount of cortical atrophy, rule out NPH. * Anemia * Moderate renal insufficiency * Mild hyponatremia/hypokalemia Plan: * MRI of the brain with and without contrast. Rule out inflammatory/infectious process, rule out NPH. * EEG evaluate for encephalopathy, rule out epileptiform activity. * Evaluation of anemia as per internal medicine. * Ammonia is normal <9, thyroid functions are normal, B12 564. No evidence of UTI, or pneumonia. * Check for West Nile virus, Lyme titer. * If no obvious answers identified, may need lumbar puncture. * Neurology will follow. Thank you for the consult. Time with Patient: Greater than 30
--- NOTE | 2023-04-23 11:21 | MR ---
EXAMINATION TYPE: MR brain wo/w con DATE OF EXAM: 04/23/2023 COMPARISON: HISTORY: New onset of tremors, inability to walk, AMS TECHNIQUE: Multiplanar, multisequence images of the brain and brainstem is performed without and with IV contras t, utilizing 8 mL intravenous Gadavist . FINDINGS: Diffusion weighted images demonstrate no evidence of a recent infarct or other diffusion ab normality. There is moderate generalized degenerative change. Areas of abnormal signal in the white matter are n onspecific but most typical of remote white matter ischemia. Low attenuation in the left basal gangli a. Chronic compatible with remote lacunar infarct. Midline structures demonstrate normal morphology. The craniocervical junction appears within normal limits. Post contrast images demonstrate no abnormal enhancement. The dural venous sinuses appear pa tent. Changes of mild chronic sinusitis. Orbits are symmetric. On the T1 sagittal image findings are suspic ious for a disc herniation or disc osteophyte complex C3-C4 which may encroach upon the spinal cord. IMPRESSION: 1. No evidence of acute ischemia. 2. Moderate degenerative mild remote microvascular white matter ischemia. 3. There is a suspicion of a disc herniation at C3-C4. With the mild anterior impression upon the spi nal cord. Consider MRI cervical spine. Report was telephoned to the patient's nurse Sally at 11:18 AM 04/23/2023.
--- NOTE | 2023-04-23 12:05 | EEG ---
ELECTROENCEPHALOGRAM REPORT PREAMBLE: This is a 78-year-old male, who has presented with new onset altered mental status, tremors and difficulty walking. Rule out encephalopathy versus seizure. EEG FINDINGS: This is a 21-channel digital EEG recorded with video component, utilizing 10/20 international system with referential and bipolar montages. Background consists of well-developed, moderately well-regulated, mixed frequencies of 6-7 hertz theta, mixed with fast frequency beta activity seen in bihemispheric region. Some alpha activity was also seen intermittently. Photic driving response was seen with some flash frequencies. Drowsiness was attained with appearance of bilaterally symmetric theta frequency rhythm. Stage II sleep was seen with presence of sleep spindles. No focal or generalized epileptiform activity was seen. IMPRESSION: This is an abnormal EEG due to presence of mixed slow and superimposed fast frequency activity suggestive of mild encephalopathy or medication effect. Clinical correlation is recommended. No epileptiform activity was seen. MMDELMA / JOES MIGUELN: [id number] / MTDD
--- NOTE | 2023-04-23 14:12 | P.PN ---
Subjective Progress Note Date: 04/23/23 * 78-year-old gentleman with past medical history significant for dyslipidemia, hypertension chronic kidney disease presented to the emergency department with complaints of weakness. * Patient states he has been progressively getting weak and for the last 3 weeks he has generalized tremors. Patient had impaired ambulation secondary to tremors as well * Patient states he can take about one to 2 steps on his own without assistance and the tremors has limited his activity of daily living. He is from and his medical record is limited * At the time of presentation in ER patient had a CT brain done which was negative for acute intracranial process. Patient had a chest x-ray obtained which was negative as well * Blood work obtained including CBC which showed anemia hemoglobin of 8.7 hematocrit 25 serum chemistry shows sodium of 134 potassium 3.3 chloride of 95 BUN of 44 creatinine 2.13 blood glucose 102 TSH within normal limits * Patient admitted with consultations from neurology for further evaluation * 04/23/2023 Patient seen by neurology, MRI brain reviewed, MRI cervical spine ordered to rule out cervical spine stenosis or nerve impingement. Workup ordered by neurology Objective - Vital Signs Vital signs: Vital Signs Temp 97.7 F 04/23/23 11:34 Pulse 85 04/23/23 11:34 Resp 18 04/23/23 11:34 BP 124/64 04/23/23 11:34 Pulse Ox 95 04/23/23 11:34 FiO2 21 04/23/23 08:02 Intake & Output 04/22/23 04/23/23 04/23/23 18:59 06:59 18:59 Output Total 500 450 Balance -500 -450 Output: Urine 500 450 Other: Voiding Method Incontinent Incontinent Incontinent External Catheter External Catheter External Catheter - Exam PHYSICAL EXAMINATION: GENERAL: The patient is alert and oriented x3, not in any acute distress. Well developed, well nourished. Chronic ill appearance HEENT: Pupils are round and equally reacting to light. EOMI. No scleral icterus. No conjunctival pallor. Normocephalic, atraumatic. No pharyngeal erythema. No thyromegaly. CARDIOVASCULAR: S1 and S2 present. No murmurs, rubs, or gallops. PULMONARY: Chest is clear to auscultation, no wheezing or crackles. ABDOMEN: Soft, nontender, nondistended, normoactive bowel sounds. No palpable organomegaly. MUSCULOSKELETAL: No joint swelling or deformity. EXTREMITIES: No cyanosis, clubbing, or pedal edema. NEUROLOGICAL: She does have generalized tremors, no focal deficit noted SKIN: No rashes. 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 * Chronic kidney disease * Chronic anemia * History of hypertension * History of dyslipidemia * Coronary artery disease * In regards to generalized tremors neurology consulted, CT head negative for acute intracranial process, TSH within normal limits, MRI brain negative EEG negative cervical spine MRI ordered * In regards to chronic kidney disease continue to monitor renal profile continue IV hydration nephrotoxic medications including hydrochlorothiazide on hold * In regards to history of coronary artery disease continue patient on Plavix continue Lipitor * CODE STATUS is full code * Subcu heparin for DVT prophylaxis
[2023-04-23] MEDS: ALPRAZolam 0.5 MG TAB PO PRN (22:45)
[2023-04-24] MEDS: SODIUM CHLORIDE 0.9% 1,000 ML IV SCH ×3 (02:26→20:56)
[2023-04-24 09:03] LABS: HCT 24.1 % (39.6-50.0); HGB 7.9 d/dL (13.0-17.0); MCH 32.1 pg (27.0-32.0); MCHC 32.8 d/dL (32.0-37.0); Mean Platelet Volume 10.7 FL (9.5-12.2); NRBC Per 100 WBC 0.03 X 10*3/uL (0.00-0.01); Platelet Count 380 X 10*3/uL (140-440); RBC 2.46 X 10*6/uL (4.40-5.60); RDW 18.4 % (11.5-14.5)
[2023-04-24 09:08] LABS: BUN/Creat Ratio 13.93 Ratio (12.00-20.00); Blood Urea Nitrogen 20.9 mg/dL (9.0-27.0); Calcium 8.6 mg/dL (8.7-10.3); Chloride 105 mmol/L (96-109); Glucose 94 mg/dL (70-110); Potassium 3.9 mmol/L (3.5-5.5); Sodium 139 mmol/L (135-145)
[2023-04-24] MEDS: FAMOTIDINE 20 MG TAB PO SCH (09:30)
[2023-04-24] MEDS: CYCLOBENZAPRINE 10 MG TAB PO SCH (09:30)
[2023-04-24] MEDS: HEPARIN SODIUM,PORCINE 5,000 UNIT/ML 1 ML VIAL SQ SCH ×2 (09:30→16:34)
[2023-04-24] MEDS: CLOPIDOGREL 75 MG TAB PO SCH (09:30)
[2023-04-24] MEDS: PANTOPRAZOLE 40 MG TABLET PO SCH (09:30)
[2023-04-24] MEDS: ATORVASTATIN 20 MG TAB PO SCH (09:30)
--- NOTE | 2023-04-24 10:58 | P.PN ---
Subjective Progress Note Date: 04/23/23 Patient was seen for a follow-up. Patient's son was also present today. According to patient's son, he is about 50% better. Patient's son also mentioned that patient has now reported that he has bad headache for a few days prior to arrival. However the headache is gone now. He has walked with his wal ker, sat in the chair in the afternoon. He may need rehab. Objective - Vital Signs Vital signs: Vital Signs Temp 97.7 F 04/23/23 11:34 Pulse 85 04/23/23 11:34 Resp 18 04/23/23 11:34 BP 124/64 04/23/23 11:34 Pulse Ox 95 04/23/23 11:34 FiO2 21 04/23/23 08:02 Intake & Output 04/22/23 04/23/23 04/23/23 18:59 06:59 18:59 Output Total 500 450 300 Balance -500 -450 -300 Output: Urine 500 450 300 Other: Voiding Method Incontinent Incontinent Incontinent External Catheter External Catheter External Catheter - Exam Patient's mental status is much improved. Speech and language functions are normal. Continues to have tremors but better than yesterday. He is able to eat. - Labs CBC & Chem 7: 04/24/23 04:16 04/24/23 04:16 Labs: Abnormal Lab Results - Last 24 Hours (Table) 04/23/23 Range/Units 05:41 Creatinine 1.7 H (0.6-1.5) mg/dL Est GFR (CKD-EPI) 41 L (>=60) Assessment and Plan Assessment: * Acute onset of altered mental status, significant tremors, slow mentation, difficulty with walking, and eating, unclear cause. No fever, headache or signs of infection. Rule out delirium/metabolic encephalopathy. Rule out West Nile virus. Patient used to be on Xanax, but has been off Xanax for last 8 weeks, therefore doubt would be withdrawal from Xanax at this point. * History of benign familial tremors, significantly worse in the last few days. * CT head showed slightly more prominence of the ventricles as compared to the amount of cortical atrophy, rule out NPH. * Anemia * Moderate renal insufficiency * Mild hyponatremia/hypokalemia Plan: * MRI of the brain with and without contrast revealed no evidence of acute ischemia. Moderate degenerative mild remote microvascular white matter ischemia. There is a suspicion of disc herniation at C3-C4. With the mild anterior impression upon the spinal cord. Consider MRI of the cervical spine. I personally reviewed MRI of the brain. Agree with the findings. No definitive evidence of hydrocephalus. Amount of ventricular dilation appears to be consistent with amount of cortical atrophy. * Patient to undergo MRI of the lumbar spine. * EEG was abnormal due to mixed slow and superimposed fast frequency activity suggestive of mild encephalopathy or medication effect. No epileptiform activity was seen. * Evaluation of anemia as per internal medicine. * Ammonia is normal <9, thyroid functions are normal, B12 564. No evidence of UTI, or pneumonia. * Await West Nile virus serology, Lyme titer negative. * If no obvious answers identified, may need lumbar puncture. * Discussed with patient's son in detail.
--- NOTE | 2023-04-24 13:17 | P.PN ---
Subjective Progress Note Date: 04/24/23 * 78-year-old gentleman with past medical history significant for dyslipidemia, hypertension chronic kidney disease presented to the emergency department with complaints of weakness. * Patient states he has been progressively getting weak and for the last 3 weeks he has generalized tremors. Patient had impaired ambulation secondary to tremors as well * Patient states he can take about one to 2 steps on his own without assistance and the tremors has limited his activity of daily living. He is from and his medical record is limited * At the time of presentation in ER patient had a CT brain done which was negative for acute intracranial process. Patient had a chest x-ray obtained which was negative as well * Blood work obtained including CBC which showed anemia hemoglobin of 8.7 hematocrit 25 serum chemistry shows sodium of 134 potassium 3.3 chloride of 95 BUN of 44 creatinine 2.13 blood glucose 102 TSH within normal limits * Patient admitted with consultations from neurology for further evaluation * 04/23/2023 Patient seen by neurology, MRI brain reviewed, MRI cervical spine ordered to rule out cervical spine stenosis or nerve impingement. Workup ordered by neurology * 04/24/2023: Patient evaluated bedside, MRI cervical spine pending, tremors have improved, waiting on spine surgery evaluation and recommendations. Lyme workup negative Objective - Vital Signs Vital signs: Vital Signs Temp 97.8 F 04/24/23 11:45 Pulse 82 04/24/23 11:45 Resp 18 04/24/23 11:45 BP 116/70 04/24/23 11:45 Pulse Ox 98 04/24/23 11:45 FiO2 21 04/23/23 08:02 Intake & Output 04/23/23 04/24/23 04/24/23 18:59 06:59 18:59 Intake Total 240 Output Total 300 Balance -300 240 Intake: Oral 240 Output: Urine 300 Other: Voiding Method Incontinent Incontinent Incontinent External Catheter External Catheter External Catheter # Voids 3 - Exam PHYSICAL EXAMINATION: GENERAL: The patient is alert and oriented x3, not in any acute distress. Well developed, well nourished. Chronic ill appearance HEENT: Pupils are round and equally reacting to light. EOMI. No scleral icterus. No conjunctival pallor. Normocephalic, atraumatic. No pharyngeal erythema. No thyromegaly. CARDIOVASCULAR: S1 and S2 present. No murmurs, rubs, or gallops. PULMONARY: Chest is clear to auscultation, no wheezing or crackles. ABDOMEN: Soft, nontender, nondistended, normoactive bowel sounds. No palpable organomegaly. MUSCULOSKELETAL: No joint swelling or deformity. EXTREMITIES: No cyanosis, clubbing, or pedal edema. NEUROLOGICAL: he does have generalized tremors, no focal deficit noted SKIN: No rashes. - Labs CBC & Chem 7: 04/24/23 04:16 04/24/23 04:16 Labs: Abnormal Lab Results - Last 24 Hours (Table) 04/22/23 04/24/23 04/24/23 Range/Units 05:16 04:16 04:16 RBC 2.46 L (4.40-5.60) X 10*6/uL Hgb 7.9 L (13.0-17.0) d/dL Hct 24.1 L (39.6-50.0) % MCV 98.0 H (80.0-97.0) FL MCH 32.1 H (27.0-32.0) pg RDW 18.4 H (11.5-14.5) % NRBC/100 WBC Diff 0.03 H (0.00-0.01) X 10*3/uL Est GFR (CKD-EPI) 47 L (>=60) Calcium 8.6 L (8.7-10.3) mg/dL RBC Folate 1,287 H (280 - 791) ng/mL Assessment and Plan Assessment: Assessment and plan * Generalized tremors rule out Parkinson's disease * History of essential tremor * 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 EEG negative cervical spine MRI ordered pending, surgery consulted * In regards to chronic kidney disease continue to monitor renal profile continue IV hydration nephrotoxic medications including hydrochlorothiazide on hold * In regards to history of coronary artery disease continue patient on Plavix continue Lipitor * CODE STATUS is full code * Subcu heparin for DVT prophylaxis
--- NOTE | 2023-04-24 16:34 | P.CNOR ---
History of Present Illness - [facility] Consult date: 04/24/23 Requesting physician: Jake Renner Consult reason: other (Cervical spine disease, disc bulge nerve impingement) History of present illness: Patient is a 78 male who presented the emergency department on 03/21/2023 due to increasing weakness as well as tremors. Patient was seen at bedside this afternoon and son was present during encounter. Last Saturday and patient began to have tremors and increasing weakness at home. Patient says normally ambulates independently without the use a walker or cane. Patient and son state that symptoms got worse over the weekend so patient decided to come into the hospital on Saturday. Patient states that symptoms seem to be improving over the past day or so since being in the hospital. Patient denies any falls/traumas. Orthopedics was consulted for cervical disease and C 3C4 stenosis/degenerative disc disease. Patient states he has never had spine surgery in the past. Patient states she has had a right total hip arthroplasty performed years ago in the [facility]. Patient states since he has been hospital he has been using a walker to aid in ambulation. Patient states he is not having any low back pain at this time or neck pain, but he has had some back issues for years. Patient denies any difficulty urinating. Patient denies any saddle anesthesia/loss of bowel or bladder control. Patient denies chest pain, fever, shortness of breath, nausea, vomiting, change in vision. Past Medical History Past Medical History: Chest Pain / Angina, Hyperlipidemia, Hypertension Additional Past Medical History / Comment(s): stent in 2002, History of Any Multi-Drug Resistant Organisms: None Reported Additional Past Surgical History / Comment(s): shoulder, hip. AAA? Past Psychological History: Anxiety, Depression Smoking Status: Former smoker Past Alcohol Use History: None Reported Past Drug Use History: None Reported Medications and Allergies Home Medications Medication Instructions Recorded Confirmed Type ALPRAZolam [Xanax] 0.5 mg PO TID PRN 04/21/23 04/21/23 History Ascorbic Acid [Vitamin C chew] 500 mg PO BID 04/21/23 04/21/23 History Cholecalciferol [Vitamin D3 (25 100 mcg PO DAILY 04/21/23 04/21/23 History Mcg = 1000 Iu)] Clopidogrel [Plavix] 75 mg PO DAILY 04/21/23 04/21/23 History Cyclobenzaprine [Flexeril] 10 mg PO DAILY 04/21/23 04/21/23 History Famotidine 20 mg PO BID 04/21/23 04/21/23 History Meclizine [Antivert] 25 mg PO TID PRN 04/21/23 04/21/23 History Nitroglycerin Sl Tabs [Nitrostat] 0.4 mg SL Q5M PRN 04/21/23 04/21/23 History Omeprazole [PriLOSEC] 20 mg PO AC-BID 04/21/23 04/21/23 History Rosuvastatin [Crestor] 10 mg PO DAILY 04/21/23 04/21/23 History Triamcinolone 0.1% Cream [Kenalog 1 applic TOPICAL BID 04/21/23 04/21/23 History 0.1% Cream] Triamterene/Hydrochlorothiazid 1 cap PO W/BRKFST 04/21/23 04/21/23 History [Triamterene-Hctz 37.5-25 mg Cp] hydrOXYzine HCL [Atarax] 25 mg PO Q6H PRN 04/21/23 04/21/23 History hydroCHLOROthiazide [Hydrodiuril] 25 mg PO W/BRKFST 04/21/23 04/21/23 History Allergies Allergy/AdvReac Type Severity Reaction Status Date / Time adhesive tape Allergy Rash/Hives Verified 04/21/23 19:54 cefazolin [From Kefzol] Allergy Rash/Hives Verified 04/21/23 19:54 codeine Allergy Rash/Hives Verified 04/21/23 19:54 & Shortness of Breath hydrocodone [From Vicodin] Allergy Rash/Hives Verified 04/21/23 19:54 & Shortness of breath ibuprofen [From Motrin] Allergy Rash/Hives Verified 04/21/23 19:54 & Shortness of breath morphine Allergy Dyspnea Verified 04/21/23 19:54 tramadol Allergy Dyspnea & Verified 04/21/23 19:54 Rash/Hives hydromorphone [From Dilaudid] AdvReac Vomiting & Verified 04/21/23 19:54 Itching sertraline AdvReac epididymiti Verified 04/21/23 19:54 s Physical Examination Inspection: Negative for any open fractures, significant erythema/ecchymosis/open wounds. Sensation: Equal, symmetric, bilateral intact throughout the upper and lower extremities Palpation: Nontender to palpation throughout exam Range of motion: Patient has full range of motion bilateral upper extremity is examined. There is some limited range of motion in bilateral hips and flexion/extension on exam. Patient has full range of motion throughout rest of joints and lower extremities Motor: 4/5 in all major motor exam bilateral upper extremities. 4/5 in all major motor in bilateral lower extremities Neurovascular: Radial pulses intact, 2+ bilaterally. Cap refill under 3 seconds in digits of upper extremities Special tests: Negative Homans bilaterally. Negative clonus by. Positive Luiza on the right. Negative Luiza left Results - Labs Labs: Abnormal Lab Results - Last 24 Hours (Table) 04/22/23 04/24/23 04/24/23 Range/Units 05:16 04:16 04:16 RBC 2.46 L (4.40-5.60) X 10*6/uL Hgb 7.9 L (13.0-17.0) d/dL Hct 24.1 L (39.6-50.0) % MCV 98.0 H (80.0-97.0) FL MCH 32.1 H (27.0-32.0) pg RDW 18.4 H (11.5-14.5) % NRBC/100 WBC Diff 0.03 H (0.00-0.01) X 10*3/uL Est GFR (CKD-EPI) 47 L (>=60) Calcium 8.6 L (8.7-10.3) mg/dL RBC Folate 1,287 H (280 - 791) ng/mL H & H 04/21/23 04/22/23 04/24/23 Range/Units 15:29 05:16 04:16 Hgb 8.7 L 7.6 L 7.9 L (13.0-17.5) gm/dL Hct 25.5 L 23.9 L 24.1 L (39.0-53.0) % Coagulation 04/21/23 Range/Units 15:29 INR 1.0 (<1.2) Result Diagrams: 04/24/23 04:16 04/24/23 04:16 - Diagnostic results Cervical MRI with/without contrast: report reviewed, image reviewed (MRI of cervical spine image has been reviewed. There is some stenosis in the cervical spine central cord at C3-C4. There is also some generalized mild stenosis throughout the rest of cervical spine. Degenerative disc disease present.) Assessment and Plan Assessment: 1. Cervical stenosis; degenerative disc disease; tremors of the bilateral upper and lower extremities Plan: 1. Cervical stenosis; degenerative disc disease; tremors of the bilateral upper and lower extremities - patient was seen and examined this afternoon at bedside. Patient does present with positive Luiza on the right. Exam was somewhat difficult due to patient's tremors. Imaging of the MRI of the cervical spine has been reviewed there is evidence cervical stenosis at C3-C4 centrally and some mild stenosis throughout the rest of the cervical spine. Positive for degenerative disc disease. I will discuss the findings of the exam and imaging with my attending, Dr. Rodriguez before proceeding with any potential orthop edic intervention. Patient may benefit from IV steroids due to his symptoms. Pain medication as needed. Weightbearing as tolerated with walker and assistance. We will continue to follow patient during a stay in hospital. 2. Appreciate medical management and neuro management 3. Pain management - Tylenol; Flexeril 4. DVT prophylaxis - heparin; Plavix 5. GI prophylaxis - Pepcid; Protonix 6. PT/OT - weightbearing as tolerated with walker and assistance as needed 7. Encourage incentive spirometer use 8. Appreciate consult Time with Patient: Less than 30
[2023-04-24] MEDS: ALPRAZolam 0.5 MG TAB PO PRN (20:56)
--- NOTE | 2023-04-24 22:35 | MR ---
EXAMINATION TYPE: MR cervical spine wo/w con DATE OF EXAM: 04/24/2023 COMPARISON: None HISTORY: Leg weakness CONTRAST: Performed utilizing 8 mL intravenous Gadavist gadolinium contrast. TECHNIQUE: Multiplanar multiecho imaging on a 3.0 Meri magnet is performed through the cervical spin e. FINDINGS: The craniovertebral junction is normal. Vertebral body alignment is normal. C7-T1: No focal disc herniation or significant disc bulge is evident. No spinal canal stenosis or n eural foraminal stenosis is present. C6-7: Broad-based disc bulge has mild anterior thecal sac compression. No cord contact is evident. No spinal canal stenosis is present. Some foraminal narrowing is present bilaterally.. C5-6: Normal disc bulging is anterior thecal sac flattening. No cord contact or spinal canal stenosis is present.. C4-5: No focal disc herniation or significant disc bulge is evident. Uncovertebral joint hypertrophy contributing to bilateral foraminal stenosis C3-4: Endplate spurring has mild to moderate anterior thecal sac compression. No cord contact or cord deformity is evident. Foraminal stenosis is present.. C2-3: No focal disc herniation or significant disc bulge is evident. No spinal canal stenosis or everett ral foraminal stenosis is present. No abnormal enhancement is evident. The cord maintains normal signal throughout its visualized course . There is some disc space narrowing C6-7. Disc hydration levels appear preserved. IMPRESSIONS: 1. Mild diffuse degenerative disc change discussed above. No spinal canal stenosis present. 2. Uncovertebral joint hypertrophy in the upper cervical spine contributing to foraminal stenosis gre atest at C3-4.
[2023-04-25] MEDS: HEPARIN SODIUM,PORCINE 5,000 UNIT/ML 1 ML VIAL SQ SCH ×3 (00:44→16:53)
[2023-04-25] MEDS: CYCLOBENZAPRINE 10 MG TAB PO SCH (08:14)
[2023-04-25] MEDS: PANTOPRAZOLE 40 MG TABLET PO SCH (08:14)
[2023-04-25] MEDS: CLOPIDOGREL 75 MG TAB PO SCH (08:14)
[2023-04-25] MEDS: FAMOTIDINE 20 MG TAB PO SCH (08:14)
[2023-04-25] MEDS: ATORVASTATIN 20 MG TAB PO SCH (08:14)
--- NOTE | 2023-04-25 10:22 | P.PN ---
Subjective Progress Note Date: 04/25/23 Principal diagnosis: Cervical stenosis; degenerative disc disease Patient was seen at bedside this morning lying in the semirecumbent position. Patient says he is still having some tremors, however, he seemed to be easing over the past couple days. Patient says he still is having a difficult time when he is getting up and walking. Patient denies any loss of bowel/bladder con trol. Patient denies saddle anesthesia. Patient denies chest pain, fever, shortness of breath, nausea, vomiting, change in vision. Objective - Vital Signs Vital signs: Vital Signs Temp 97.6 F 04/25/23 02:33 Pulse 65 04/25/23 02:33 Resp 18 04/25/23 02:33 BP 136/72 04/25/23 02:33 Pulse Ox 97 04/25/23 02:33 FiO2 21 04/23/23 08:02 Intake & Output 04/24/23 04/25/23 04/25/23 18:59 06:59 18:59 Intake Total 400 Output Total 800 700 Balance -800 -300 Intake: Oral 400 Output: Urine 800 700 Other: Voiding Method Incontinent Toilet External Catheter Urinal # Bowel Movements 1 - Exam Inspection: Negative for any open fractures, significant erythema/ecchymosis/open wounds. Sensation: Equal, symmetric, bilateral intact throughout the upper and lower extremities Palpation: Nontender to palpation throughout exam Range of motion: Patient has full range of motion bilateral upper extremity is examined. There is some limited range of motion in bilateral hips and flexion/extension on exam. Patient has full range of motion throughout rest of joints and lower extremities Motor: 4/5 in all major motor exam bilateral upper extremities. 4/5 in all major motor in bilateral lower extremities Neurovascular: Radial pulses intact, 2+ bilaterally. Cap refill under 3 seconds in digits of upper extremities Special tests: Negative Homans bilaterally. Negative clonus by. Positive Luiza on the right. Negative Luiza left - Labs CBC & Chem 7: 04/24/23 04:16 04/24/23 04:16 Labs: Abnormal Lab Results - Last 24 Hours (Table) 04/24/23 04/24/23 Range/Units 04:16 04:16 RBC 2.46 L (4.40-5.60) X 10*6/uL Hgb 7.9 L (13.0-17.0) d/dL Hct 24.1 L (39.6-50.0) % MCV 98.0 H (80.0-97.0) FL MCH 32.1 H (27.0-32.0) pg RDW 18.4 H (11.5-14.5) % NRBC/100 WBC Diff 0.03 H (0.00-0.01) X 10*3/uL Est GFR (CKD-EPI) 47 L (>=60) Calcium 8.6 L (8.7-10.3) mg/dL Assessment and Plan Assessment: 1. Cervical stenosis; degenerative disc disease; tremors of the bilateral upper and lower extremities Plan: 1. Cervical stenosis; degenerative disc disease; tremors of the bilateral upper and lower extremities - patient was seen and examined this morning at bedside. Imaging of the MRI of the cervical spine has been reviewed there is evidence cervical stenosis at C3 to C4 and C6 to C7. Positive for degenerative disc disease. I did discuss the findings of the exam and imaging with my attending, Dr. Rodriguez. We are recommending conservative measures at this time with use of pain medication and PT/OT. We do recommend patient to follow-up in the outpatient setting with Dr. Rodriguez for further evaluation. Pain medication as needed. Weightbearing as tolerated with walker and assistance. Patient is stable from an orthopedic standpoint for discharge. At this time orthopedics is signing off. Please do not hesitate to contact us for any further questions. 2. Appreciate medical management and neuro management 3. Pain management - Tylenol; Flexeril 4. DVT prophylaxis - heparin; Plavix 5. GI prophylaxis - Pepcid; Protonix 6. PT/OT - weightbearing as tolerated with walker and assistance as needed 7. Encourage incentive spirometer use Time with Patient: Less than 30
--- NOTE | 2023-04-25 13:38 | P.PN ---
Subjective Progress Note Date: 04/24/23 Patient was seen for a follow-up. Patient's son was also present today. According to patient's son, he is about 60% better. Patient is sitting comfortably in the recliner. Patient denies any headache at this time. Patient's son also mentioned that patient has now reported that he has bad headache for a few days prior to arrival. However the headache is gone now. He has walked with his walker, sat in the chair in the afternoon. He may need rehab. Objective - Vital Signs Vital signs: Vital Signs Temp 97.8 F 04/24/23 11:45 Pulse 82 04/24/23 11:45 Resp 18 04/24/23 11:45 BP 116/70 04/24/23 11:45 Pulse Ox 98 04/24/23 11:45 FiO2 21 04/23/23 08:02 Intake & Output 04/23/23 04/24/23 04/24/23 18:59 06:59 18:59 Intake Total 240 Output Total 300 800 Balance -300 240 -800 Intake: Oral 240 Output: Urine 300 800 Other: Voiding Method Incontinent Incontinent Incontinent External Catheter External Catheter External Catheter # Voids 3 # Bowel Movements 1 - Exam Patient's mental status is much improved. Speech and language functions are normal. Patient knows it is April and the year is and that his in [facility]. Muscle strength testing, normal upper extremities. In the lower limbs, hip flex ion is 3+4-bilaterally, and ankle dorsiflexion is normal. Sensory to touch is equal. Cranial nerves are normal. Reflexes 1+ in the upper limbs at biceps and brachioradialis, 1 at the knees, trace ankles and plantars are withdrawal bilaterally. No ataxia for [id number] testing. Patient's tremors has much improved of outstretched hands and also for [id number] testing. - Labs CBC & Chem 7: 04/24/23 04:16 04/24/23 04:16 Labs: Abnormal Lab Results - Last 24 Hours (Table) 04/22/23 04/24/23 04/24/23 Range/Units 05:16 04:16 04:16 RBC 2.46 L (4.40-5.60) X 10*6/uL Hgb 7.9 L (13.0-17.0) d/dL Hct 24.1 L (39.6-50.0) % MCV 98.0 H (80.0-97.0) FL MCH 32.1 H (27.0-32.0) pg RDW 18.4 H (11.5-14.5) % NRBC/100 WBC Diff 0.03 H (0.00-0.01) X 10*3/uL Est GFR (CKD-EPI) 47 L (>=60) Calcium 8.6 L (8.7-10.3) mg/dL RBC Folate 1,287 H (280 - 791) ng/mL Assessment and Plan Assessment: * Acute onset of altered mental status, significant tremors, slow mentation, difficulty with walking, and eating, unclear cause. No fever, headache or signs of infection. Rule out delirium/metabolic encephalopathy. Rule out West Nile virus. Patient used to be on Xanax, but has been off Xanax for last 8 weeks, therefore doubt would be withdrawal from Xanax at this point. * History of benign familial tremors, significantly worse in the last few days. * Anemia * Moderate renal insufficiency * Mild hyponatremia/hypokalemia Plan: * MRI of the brain with and without contrast revealed no evidence of acute ischemia. Moderate degenerative mild remote microvascular white matter ischemia. There is a suspicion of disc herniation at C3-C4. With the mild anterior impression upon the spinal cord. Consider MRI of the cervical spine. I personally reviewed MRI of the brain. Agree with the findings. No definitive evidence of hydrocephalus. Amount of ventricular dilation appears to be consistent with amount of cortical atrophy. * MRI of the cervical spine revealed mild diffuse degenerative disc changes. No spinal canal stenosis. Uncovertebral joint hypertrophy in the upper cervical spine contributing to foraminal stenosis greatest at C3 4. I personally reviewed MRI agree with the findings. * EEG was abnormal due to mixed slow and superimposed fast frequency activity suggestive of mild encephalopathy or medication effect. No epileptiform activity was seen. * Evaluation of anemia as per internal medicine. * Ammonia is normal <9, thyroid functions are normal, B12 564. No evidence of UTI, or pneumonia. * Await West Nile virus serology, Lyme titer negative. * As patient's clinical condition is improving gradually, therefore no indication for lumbar puncture. * Discussed with patient's son in detail. We will continue to follow.
--- NOTE | 2023-04-25 14:20 | P.PN ---
Subjective 78-year-old gentleman with past medical history significant for dyslipidemia, hypertension chronic kidney disease presented to the emergency department with complaints of weakness. * Patient states he has been progressively getting weak and for the last 3 weeks he has generalized tremors. Patient had impaired ambulation secondary to tremors as well * Patient states he can take about one to 2 steps on his own without assistance and the tremors has limited his activity of daily living. He is from and his medical record is limited * At the time of presentation in ER patient had a CT brain done which was negative for acute intracranial process. Patient had a chest x-ray obtained which was negative as well * Blood work obtained including CBC which showed anemia hemoglobin of 8.7 hematocrit 25 serum chemistry shows sodium of 134 potassium 3.3 chloride of 95 BUN of 44 creatinine 2.13 blood glucose 102 TSH within normal limits * Patient admitted with consultations from neurology for further evaluation * 04/23/2023 Patient seen by neurology, MRI brain reviewed, MRI cervical spine ordered to rule out cervical spine stenosis or nerve impingement. Workup ordered by neurology * 04/24/2023: Patient evaluated bedside, MRI cervical spine pending, tremors have improved, waiting on spine surgery evaluation and recommendations. Lyme workup negative 04/25/2023 This is a pleasant 78 years old male who presents because of progressive terminal of the hands more on the right upper extremity with generalized weakness and decreased appetite, multiple probably could not eat because of his tremor and needed assistance with feeding. He was evidence of acute kidney injury with creatinine 2.1 on admission months likely secondary to dehydration, improving with normal saline down to 1.5. He had MRI of the brain which was negative as well as of the cervical spine which was negative except for bilateral foraminal stenosis of C3-C4 for which Dr. Rodriguez team evaluated the patient and the recommended conservative management and follow-up as an outpatient. Patient cleared for discharge with the recommendation. Patient still followed up by neurologist pending further workup (lumbar puncture may be considered if no improvement) however today patient looks more stable and asked questions however will follow up with neurologist for further r ecommendation Objective - Vital Signs Vital signs: Vital Signs Temp 98 F 04/25/23 12:36 Pulse 66 04/25/23 12:36 Resp 18 04/25/23 12:36 BP 110/65 04/25/23 12:36 Pulse Ox 94 L 04/25/23 12:36 FiO2 21 04/23/23 08:02 Intake & Output 04/24/23 04/25/23 04/25/23 18:59 06:59 18:59 Intake Total 400 Output Total 800 700 Balance -800 -300 Intake: Oral 400 Output: Urine 800 700 Other: Voiding Method Incontinent Toilet Toilet External Catheter Urinal Urinal # Bowel Movements 1 - Labs CBC & Chem 7: 04/24/23 04:16 04/24/23 04:16
[2023-04-25 14:37] LABS: HCT 24.1 % (39.6-50.0); HGB 7.7 d/dL (13.0-17.0); NRBC Per 100 WBC 0.02 X 10*3/uL (0.00-0.01); Platelet Count 404 X 10*3/uL (140-440); RBC 2.41 X 10*6/uL (4.40-5.60); RDW 18.6 % (11.5-14.5); WBC 5.41 X 10*3/uL (4.50-10.00)
[2023-04-25 15:09] LABS: BUN/Creat Ratio 13.21 Ratio (12.00-20.00); Blood Urea Nitrogen 18.5 mg/dL (9.0-27.0); Calcium 8.7 mg/dL (8.7-10.3); Carbon Dioxide 23.6 mmol/L (21.6-31.8); Chloride 109 mmol/L (96-109); Glucose 97 mg/dL (70-110); Sodium 141 mmol/L (135-145)
[2023-04-25] MEDS: SODIUM CHLORIDE 0.9% 1,000 ML IV SCH (17:19)
[2023-04-26] MEDS: HEPARIN SODIUM,PORCINE 5,000 UNIT/ML 1 ML VIAL SQ SCH ×2 (00:28→08:26)
[2023-04-26 00:37] VITALS: RESP 18
[2023-04-26] MEDS: FAMOTIDINE 20 MG TAB PO SCH (08:25)
[2023-04-26] MEDS: ATORVASTATIN 20 MG TAB PO SCH (08:25)
[2023-04-26] MEDS: CYCLOBENZAPRINE 10 MG TAB PO SCH (08:26)
[2023-04-26] MEDS: SODIUM CHLORIDE 0.9% 1,000 ML IV SCH (08:26)
[2023-04-26] MEDS: CLOPIDOGREL 75 MG TAB PO SCH (08:26)
[2023-04-26] MEDS: PANTOPRAZOLE 40 MG TABLET PO SCH (08:26)
--- NOTE | 2023-04-26 09:30 | P.PN ---
Subjective Progress Note Date: 04/25/23 Patient was seen for a follow-up. Patient's son was also present today. According to patient's son, he is about 70% better. Patient is sitting comfortably in the recliner. Patient denies any headache at this time. Denies dizziness Patient's son also mentioned that patient has now reported that he has bad headache for a few days prior to arrival. However the headache is gone now. He has walked with his walker, sat in the chair in the afternoon. He may need rehab. Objective - Vital Signs Vital signs: Vital Signs Temp 98 F 04/25/23 12:36 Pulse 66 04/25/23 12:36 Resp 18 04/25/23 12:36 BP 110/65 04/25/23 12:36 Pulse Ox 94 L 04/25/23 12:36 FiO2 21 04/23/23 08:02 Intake & Output 04/24/23 04/25/23 04/25/23 18:59 06:59 18:59 Intake Total 400 Output Total 800 700 Balance -800 -300 Intake: Oral 400 Output: Urine 800 700 Other: Voiding Method Incontinent Toilet Toilet External Catheter Urinal Urinal # Bowel Movements 1 - Exam Patient's mental status is much improved. Speech and language functions are normal. Patient knows it is April and the year is and that his in [facility]. Muscle strength testing, normal upper extremities. In the lower limbs, hip flexion is 3+4-bilaterally, and ankle dorsiflexion is normal. Sensory to touch is equal. Cranial nerves are normal. Reflexes 1+ in the upper limbs at biceps and brachioradialis, 1 at the knees, trace ankles and plantars are withdrawal bilaterally. No ataxia for [id number]-eu-[id number] testing. Patient's tremors has much improved of outstretched hands and also for bqcqsz-[id number] testing. - Labs CBC & Chem 7: 04/25/23 07:02 04/25/23 07:02 Labs: Abnormal Lab Results - Last 24 Hours (Table) 04/25/23 04/25/23 Range/Units 07:02 07:02 RBC 2.41 L (4.40-5.60) X 10*6/uL Hgb 7.7 L (13.0-17.0) d/dL Hct 24.1 L (39.6-50.0) % MCV 100.0 H (80.0-97.0) FL RDW 18.6 H (11.5-14.5) % NRBC/100 WBC Diff 0.02 H (0.00-0.01) X 10*3/uL Est GFR (CKD-EPI) 51 L (>=60) Assessment and Plan Assessment: * Acute onset of altered mental status, significant tremors, slow mentation, difficulty with walking, and eating, unclear cause. No fever, headache or signs of infection. Rule out delirium/metabolic encephalopathy. Rule out West Nile virus. Patient used to be on Xanax, but has been off Xanax for last 8 weeks, therefore doubt would be withdrawal from Xanax at this point. * History of benign familial tremors, significantly worse in the last few days. * Anemia * Moderate renal insufficiency * Mild hyponatremia/hypokalemia Plan: * MRI of the brain with and without contrast revealed no evidence of acute ischemia. Moderate degenerative mild remote microvascular white matter ischemia. There is a suspicion of disc herniation at C3-C4. With the mild anterior impression upon the spinal cord. Consider MRI of the cervical spine. I personally reviewed MRI of the brain. Agree with the findings. No definitive evidence of hydrocephalus. Amount of ventricular dilation appears to be consistent with amount of cortical atrophy. * MRI of the cervical spine revealed mild diffuse degenerative disc changes. No spinal canal stenosis. Uncovertebral joint hypertrophy in the upper cervical spine contributing to foraminal stenosis greatest at C3 4. I personally rev iewed MRI agree with the findings. * EEG was abnormal due to mixed slow and superimposed fast frequency activity suggestive of mild encephalopathy or medication effect. No epileptiform activity was seen. * Evaluation of anemia as per internal medicine. * Ammonia is normal <9, thyroid functions are normal, B12 564. No evidence of UTI, or pneumonia. * Await West Nile virus serology, Lyme titer negative. * As patient's clinical condition is improving gradually, therefore no indication for lumbar puncture. * Discussed with patient's son in detail. Neurologically clear for transfer to rehab. Addendum: 05/03/2023 Patient's West Nile virus IgG is 2.20 (normal <= 1.50), West Nile virus IgM 8.91 (normal <0.90). I spoke to Dr. Lockhart, who states that if want to confirm the diagnosis, may need CSF studies, but depending on the clinical condition of the patient. In any case, there is no effective treatment for West Nile virus. I called patient's son and spoke to him on the phone. Informed them about the results of West Nile virus serology. He mentioned that patient is mentally 100% back to baseline. He still has significant tremors. He is in the process of seeing a neurologist locally. Suggested if patient has persistent symptoms, may consider lumbar puncture. Recommended to go to ER if any worsening of symptoms. Overall he is getting better.
--- NOTE | 2023-04-26 12:25 | P.DS ---
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 It was suspected secondary to dehydration improved with IV fluid. Hydrochlorothiazide was discontinued * History of essential tremor * Chronic kidney disease * Chronic anemia * History of hypertension * History of dyslipidemia * Coronary artery disease Hospital course: This is a pleasant 78 years old male who presents because of progressive tremor of the hands more on the right upper extremity with generalized weakness and decreased appetite, multiple probably could not eat because of his tremor and needed assistance with feeding. Patient evaluated by neurology service which was showing negative MRI of the brain for acute process but MRI of the cervical spine showing cervical spinal stenosis C3-C4, able at that by orthopedic team recommended continue with conservative management with pain management and PT/OT. Physical therapy recommended subacute rehab. Patient also cleared for discharge by neurologist Patient denies any other new symptoms Problems and management plan were discussed with the patient and he verbalized understanding and acceptance Patient was found stable and can be discharged home in guarded prognosis however he needs follow-up as an outpatient. Patient was instructed to follow up with PCP within one week and patient agrees Patient recommended to follow-up with the neurologist in 1-2 weeks as an outpatient and Dr. Calero suggested for him and he is agreeable Patient also suspected to follow-up with orthopedic team Dr. Rodriguez in 2-3 weeks and he is agreeable Notes: -patient was on Xanax at home, he received only 2 doses, last one was on 04/24, patient does not need any more Xanax and can be discontinued upon discharge -patient has dehydrated upon admission therefore discontinue hydrochlorothiazide Physical exam Gen: patient is a AAOx3, no distress CVS: S1-S2, RRR, no murmur Lungs: B/L CTA, no wheezing Abdomen: soft, no distention, no tenderness, positive bowel sounds -Extremity: no leg edema or induration. Mild tremor of the proximity more on the right side, mainly with activity Ativan addressed Time spent more than 35 minutes Plan - Discharge Summary Discharge Rx Participant: Yes New Discharge Prescriptions: No Action Triamcinolone 0.1% Cream [Kenalog 0.1% Cream] 1 applic TOPICAL BID Rosuvastatin [Crestor] 10 mg PO DAILY Meclizine [Antivert] 25 mg PO TID PRN PRN Reason: Vertigo hydroCHLOROthiazide [Hydrodiuril] 25 mg PO W/BRKFST Cyclobenzaprine [Flexeril] 10 mg PO DAILY Cholecalciferol [Vitamin D3 (25 Mcg = 1000 Iu)] 100 mcg PO DAILY Ascorbic Acid [Vitamin C chew] 500 mg PO BID Triamterene/Hydrochlorothiazid [Triamterene-Hctz 37.5-25 mg Cp] 1 cap PO W/BRKFST Omeprazole [PriLOSEC] 20 mg PO AC-BID Nitroglycerin Sl Tabs [Nitrostat] 0.4 mg SL Q5M PRN PRN Reason: Chest Pain hydrOXYzine HCL [Atarax] 25 mg PO Q6H PRN PRN Reason: Itching Famotidine 20 mg PO BID ALPRAZolam [Xanax] 0.5 mg PO TID PRN PRN Reason: Anxiety Clopidogrel [Plavix] 75 mg PO DAILY Discharge Medication List ALPRAZolam [Xanax] 0.5 mg PO TID PRN 04/21/23 [History] Ascorbic Acid [Vitamin C chew] 500 mg PO BID 04/21/23 [History] Cholecalciferol [Vitamin D3 (25 Mcg = 1000 Iu)] 100 mcg PO DAILY 04/21/23 [History] Clopidogrel [Plavix] 75 mg PO DAILY 04/21/23 [History] Cyclobenzaprine [Flexeril] 10 mg PO DAILY 04/21/23 [History] Famotidine 20 mg PO BID 04/21/23 [History] Meclizine [Antivert] 25 mg PO TID PRN 04/21/23 [History] Nitroglycerin Sl Tabs [Nitrostat] 0.4 mg SL Q5M PRN 04/21/23 [History] Omeprazole [PriLOSEC] 20 mg PO AC-BID 04/21/23 [History] Rosuvastatin [Crestor] 10 mg PO DAILY 04/21/23 [History] Triamcinolone 0.1% Cream [Kenalog 0.1% Cream] 1 applic TOPICAL BID 04/21/23 [History] Triamterene/Hydrochlorothiazid [Triamterene-Hctz 37.5-25 mg Cp] 1 cap PO W/BRKFST 04/21/23 [History] hydrOXYzine HCL [Atarax] 25 mg PO Q6H PRN 04/21/23 [History] hydroCHLOROthiazide [Hydrodiuril] 25 mg PO W/BRKFST 04/21/23 [History] Follow up Appointment(s)/Referral(s): Leonie Calero MD [Medical Doctor] - 1 Week Nonstaff,Physician [Primary Care Provider] - 1-2 days Shaheed Rodriguez DO [Doctor of Osteopathic Medicine] - 10 Days
[2023-04-26 13:02] VITALS: BP 130/78; PULSE 78; TEMP 98
--- NOTE | 2023-05-02 12:40 | CDI ---
Documentation Clarification Form Date: 05/02/2023 12:12:05 PM From: Meseret Peralta RN, CCDS Email: [email or web address] Admit Date: 04/21/2023 06:43:00 PM Patient Name: Anthony Mclean Visit Number: [id number] Discharge Date: 04/26/2023 03:15:00 PM ATTENTION: The Clinical Documentation Specialists (CDI) and [facility] Coding Staff appreciate your assistance in clarifying documentation. Please respond to the clarification below the line at the bottom and electronically sign. The CDI & [facility] Coding staff will review the response and follow-up if needed. Please note: Queries are made part of the Legal Health Record. If you have any questions, please contact the author of this message via ITS. Dr. Jake Renner Your patient has the documented symptom of Altered Mental Status in the ED note and progress notes. Additional clarification regarding the etiology/cause of this symptom is requested. History/Risk Factors: Angina, HLD and HTN. Presented to the ED with weakness, tremors and confusion. Clinical Indicators: ED: "Patient has had some confusion. Decreased oral intake." 04/22 Neurology consult: "Acute onset of altered mental status, tremors, slow mentation, difficulty with walking, and eating, unclear cause." 04/23 EEG: This is an abnormal EEG due to presence of mixed slow and superimposed fast frequency activity suggestive of mild encephalopathy or medication effect. 04/25 IM: "He was evidence of acute kidney injury with creatinine 2.1 on admission likely secondary to dehydration, improving with normal saline down to 1.5." 04/21-04/25 Labs: Cr 2.13-1.9-1.7-1.5-1.4, Na 134, K+ 3.3 04/23 Brain MRI: No evidence of acute ischemia. Moderate degenerative mild remote microvascular white matter ischemia. There is a suspicion of a disc herniation at C3-C4. With the mild anterior impression upon the spinal cord. 04/24 MRI C spine: Uncovertebral joint hypertrophy in the upper cervical spine contributing to foraminal stenosis greatest at C3-4. Treatment: 0.9 NS @ 75ml/hr 04/21-04/26; from 04/23 IM: monitor renal profile continue IV hydration nephrotoxic medications including hydrochlorothiazide on hold Please clarify the etiology of the symptom of Altered Mental Status: [ ] Metabolic Encephalopathy due to dehydration [ ] Other condition (please specify) [ ] Unable to determine MTDD
[2023-05-02 13:01] LABS: West Nile Virus IgM Antibody 8.91 INDEX (<0.90)
--- NOTE | 2023-05-13 15:28 | CDI ---
Documentation Clarification Form Date: 05/02/2023 12:12:00 PM From: Meseret Peralta RN, CCDS Email: [email or web address] Admit Date: 04/21/2023 06:43:00 PM Patient Name: Anthony Mclean Visit Number: [id number] Discharge Date: 04/26/2023 03:15:00 PM ATTENTION: The Clinical Documentation Specialists (CDI) and [facility] Coding Staff appreciate your assistance in clarifying documentation. Please respond to the clarification below the line at the bottom and electronically sign. The CDI & [facility] Coding staff will review the response and follow-up if needed. Please note: Queries are made part of the Legal Health Record. If you have any questions, please contact the author of this message via ITS. Dr. Jake Renner Your patient has the documented symptom of Altered Mental Status in the ED note and progress notes. Additional clarification regarding the etiology/cause of this symptom is requested. History/Risk Factors: Angina, HLD and HTN. Presented to the ED with weakness, tremors and confusion. Clinical Indicators: ED: "Patient has had some confusion. Decreased oral intake." 04/22 Neurology consult: "Acute onset of altered mental status, tremors, slow mentation, difficulty with walking, and eating, unclear cause." 04/23 EEG: This is an abnormal EEG due to presence of mixed slow and superimposed fast frequency activity suggestive of mild encephalopathy or medication effect. 04/25 IM: "He had evidence of acute kidney injury with creatinine 2.1 on admission likely secondary to dehydration, improving with normal saline down to 1.5." 04/21-04/25 Labs: Cr 2.13-1.9-1.7-1.5-1.4, Na 134, K+ 3.3 04/23 Brain MRI: No evidence of acute ischemia. Moderate degenerative mild remote microvascular white matter ischemia. There is a suspicion of a disc herniation at C3-C4. With the mild anterior impression upon the spinal cord. 04/24 MRI C spine: Uncovertebral joint hypertrophy in the upper cervical spine contributing to foraminal stenosis greatest at C3-4. Treatment: 0.9 NS @ 75ml/hr 04/21-04/26; from 04/23 IM: monitor renal profile continue IV hydration nephrotoxic medications including hydrochlorothiazide on hold Please clarify the etiology of the symptom of Altered Mental Status: [ y ] Metabolic encephalopathy due to dehydration [ ] Toxic encephalopathy [ ] Other condition (please specify) [ ] Unable to determine MTDD
== END 2023-04-26 15:15 | DRG 551 ==
LOC: EC 13:32 → 4SSUR 18:43 → 5NMEDONC 04-22 18:42
PROVIDERS: ADMIT Internal Medicine; ATTEND Internal Medicine
DX: M48.02 Spinal stenosis, cervical region (principal); G93.41 Metabolic encephalopathy; N17.9 Acute kidney failure, unspecified; E87.1 Hypo-osmolality and hyponatremia; M50.21 Other cervical disc displacement, high cervical region; M50.30 Other cervical disc degeneration, unspecified cervical region; I12.9 Hypertensive chronic kidney disease with stage 1 through stage 4 chronic kidney disease, or unspecified chronic kidney disease; N18.9 Chronic kidney disease, unspecified; D63.1 Anemia in chronic kidney disease; D64.89 Other specified anemias; E78.5 Hyperlipidemia, unspecified; E86.0 Dehydration; E87.6 Hypokalemia; F32.A Depression, unspecified; F41.1 Generalized anxiety disorder; E66.9 Obesity, unspecified; G25.0 Essential tremor; Z79.02 Long term (current) use of antithrombotics/antiplatelets; Z79.899 Other long term (current) drug therapy; Z95.5 Presence of coronary angioplasty implant and graft; Z96.641 Presence of right artificial hip joint; I25.10 Atherosclerotic heart disease of native coronary artery without angina pectoris; Z28.310 Unvaccinated for COVID-19; Z68.26 Body mass index [BMI] 26.0-26.9, adult; Z88.6 Allergy status to analgesic agent; Z88.1 Allergy status to other antibiotic agents; Z88.5 Allergy status to narcotic agent; Z88.8 Allergy status to other drugs, medicaments and biological substances
CPT/HCPCS: 36415; 70450; 70553; 71046; 72156; 80048; 80053; 81003; 82140; 82607; 82747; 83540; 83550; 83605; 83735; 84100; 84439; 84443; 84481; 84484; 85025; 85027; 85610; 85730; 86618; 86788; 86789; 93005; 94760; 95819; 96360; 96361; 99285